=== PATIENT | male | born 1985 | race Caucasian/White ===

== ENCOUNTER 2016-12-14 16:37 | Inpatient (IN) | payer OTHER ==
--- NOTE | ~2016-12-14 | PA ---
Unit #: [id number] #: [id number] Patient: JAE FELIX [id number] [place] [address] [id number] MR#: [id number] NAME: JAE FELIX ROOM: P201 Age: 31 Sex: M Admission Date: 12/14/2016 : 1985 Date of Assessment: Attending Physician: Ashish Sorensen M.D. Admitting Physician: Ashish Sorensen M.D. Primary Care Physician: Generic Doctor Not In System PSYCHIATRIC ASSESSMENT JOB NOTE: DISTORTED AUDIO. [facility]ATION [facility] [address], room #201, bed #1. DATE OF SERVICE 12/15/2016. INFORMANTS The patient and chart. CHIEF COMPLAINT "I gotta get off drugs." HISTORY OF PRESENT ILLNESS This is a 31-year-old white male transferred from [facility] for issues with heroin and Xanax dependency. The patient apparently was there and treated for osteomyelitis infection for several days before being transferred here for chemical detox. Apparently, he was maintained on higher doses of opioids and benzos throughout the admission for reasons not exactly clear, but at this time the patient is reporting that he has been using large amounts daily for the last several months if not for the last 4+ years. He is vague about the amounts primarily heroin and Xanax, but also it include methamphetamines. He denies any acute mood issues, but apparently was on Zoloft hospital and reports tolerating it per the chart. He denies any SI or HI actually reports right now that he is feeling "better than I thought it would", he said it is a mildest GI discomfort, but otherwise normal. Sleep last night was poor though. The patient has never been through overt treatment before now. PAST PSYCHIATRIC HISTORY Nothing to contribute in terms of overt treatment psychiatric medications before his previous hospitalization. No history of SI, HI, or psychosis . FAMILY HISTORY Significant for "widespread drug users SOCIAL HISTORY The patient has good support through his father, has a high school diploma, currently unemployed. Unit #: [id number] #: [id number] Patient: JAE FELIX MEDICAL HISTORY Issues as noted above, for which he is currently on Levaquin. MEDICATION HISTORY Include Levaquin and Zoloft daily, started at the [facility] in [place]. ALLERGIES Include Zosyn. SUBSTANCE ABUSE HISTORY As noted above. No history of seizures. No history of intubation or severe medical complications before these recent events. MENTAL STATUS EXAMINATION General appearance; this is a moderately groomed white male, appears stated age. Multiple bruising and abrasions on arms from recent hospitalization and track denney. Fairly good eye contact. Speech somewhat dysphoric with a congruent affect. Thought process and content were grossly organized and linear. No overt evidence of psychosis. No SI or HI reported memory intact. Associations were normal. Cognitive function was at baseline. Alert and oriented x4. Insight and judgment are limited regarding substance use. ASSETS AND LIABILITIES Assets include support through his father . ADMITTING DIAGNOSES 1. withdrawal. 2. Sedative hypnotic dependence and withdrawal. 3. 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 4. Status post infection secondary to drug use. PSYCHIATRIC PLAN Psychiatric plan will be . Estimated length of stay approximately 4 to 5 days depending on the patient's response to treatment progress and care. Dictated by... Ashish Sorensen M.D. GLADIS/asa TD: 12/16/2016 01:21 JOB #: [id number] PSYCHIATRIC ASSESSMENT Page 1 of 1 X Ashish Sorensen MD X PSYCHIATRIC ASSESSMENT
--- NOTE | ~2016-12-14 | PN ---
Unit #: [id number] #: [id number] Patient: JAE FELIX [id number] [place] [address] [id number] MR#: [id number] NAME: JAE FELIX ROOM: P201 Age: 31 Sex: M Admission Date: 12/14/2016 : 1985 Attending Physician: Ashish Sorensen M.D. Admitting Physician: Ashish Sorensen M.D. Primary Care Physician: Generic Doctor Not In System [facility] PROGRESS NOTES DATE 12/17/2016 LOCATION [facility], Room #201, bed #1. SUBJECTIVE UPDATE This is a 31-year-old white male with issues of ongoing detox issues. The patient reports continuing to feel fairly well, some remanence of upset stomach, sleep disturbance, ache and pains, etc but overall is feeling much better today. Reported better night sleep with the medication changes to the Seroquel antidepressant continues to do well and he is tolerating the naltrexone with a sharp decrease in cravings. The patient did report his GI track is calming as he notices anger is (1)____ increasing and ask for larger portions. MENTAL STATUS EXAMINATION General appearance: This is a moderately groomed white male, fairly pleasant, cooperative, and responsive during the interview process with improved eye contact. Speech was clear and coherent with normal prosody. Mood was "better" with a congruent affect. Thought process and content are grossly organized and linear. No overt evidence of psychosis. No SI and no HI reported or listed. The patient's memory was grossly intact. Associations were normal. Cognitive function was at baseline. Associations were normal. Alert and oriented x4. Insight and judgment was improving. RECOMMENDATIONS We will continue the patient on current detox protocol symptoms appear to be resolving well and overall presentation is improving especially when tolerating the medications and sleep improvement. We will order for larger portions today with most likely disposition tomorrow if progress is maintained with outpatient care to be established per patient's needs. Dictated by... Manuel Paez/susu TD: 12/18/2016 04:23 JOB #: [id number] Unit #: [id number] #: [id number] Patient: JAE FELIX PROGRESS NOTES Page 1 of 1 X Ashish Sorensen MD PROGRESS NOTE
--- NOTE | ~2016-12-14 | HP ---
Unit #: [id number] #: [id number] Patient: LUIS FELIX [id number] [place] [address] [id number] MR#: [id number] NAME: LUIS FELIX ROOM: P201 Age: 31 Sex: M Admission Date: 12/14/2016 : 1985 Attending Physician: Ashish Sorensen M.D. Admitting Physician: Ashish Sorensen M.D. Primary Care Physician: Generic Doctor Not In System HISTORY AND PHYSICAL HISTORY OF PRESENT ILLNESS Luis is a 31 year old admitted to [address] [place] [address] because of his IV drug use. He was recently treated for a gram positive septicemia. He is admitted to [facility] on levaquin. PAST MEDICAL HISTORY 1. Long history of illicit substance abuse to include IV drugs. 2. Patient is being treated for gram positive septicemia. PAST SURGICAL HISTORY Nothing reported. ALLERGIES Zosyn SOCIAL HISTORY Smokes one-half pack per day. Drinks alcohol on occasion. Admits to a long history of illicit drug use to include methamphetamines, heroin and benzodiazepines. FAMILY HISTORY Medically noncontributory. REVIEW OF SYSTEMS CONSTITUTIONAL: No fever or chills. HEENT: Denies any sore throat, ear pain or runny nose. CARDIOVASCULAR: Denies chest pain, irregular heart rhythm or palpitations. CHEST: Denies shortness of breath or cough. No hemoptysis. GASTROINTESTINAL: Denies nausea, vomiting, diarrhea or chronic constipation. ENDOCRINE: Denies history of increased thirst or urination. No recent significant weight loss or gain. GENITOURINARY: Denies dysuria, frequency, or hematuria. SKIN: Denies any rashes. HEMATOLOGIC: Denies history of increased bleeding or bruising. MUSCULOSKELETAL: Denies any hot, swollen joints. No generalized muscle pain. NEUROLOGIC: Denies problems with vision or speech. No frequent, severe headaches. No numbness, tingling or weakness in any extremities. Denies loss of bladder or bowel control. CURRENT MEDICATIONS Unit #: [id number] #: [id number] Patient: LUIS FELIX 1. Detox protocol 2. Levaquin 750 mg p.o. q day PHYSICAL EXAMINATION GENERAL: Alert, well-nourished, in no apparent distress. VITAL SIGNS: Blood pressure 120/74, heart rate 70, respirations 16, temperature 98.6. WEIGHT: 160 pounds. HEIGHT: 5'10". SKIN: Warm and dry without rash or lesion. HEENT: Normocephalic. TMs not viewed. Oral and nasal passages clear. Conjunctivae clear. Pupils equal, round and reactive to light and accommodation. Extraocular movements intact. NECK: Supple without lymphadenopathy or thyromegaly. HEART: Regular rate and rhythm without murmur. LUNGS: Clear. ABDOMEN: Soft, nontender. : Not done. EXTREMITIES: No evidence of cyanosis, clubbing or edema. Moves all extremities without focal deficit. NEUROLOGICAL: Grossly within normal limits. Cranial Nerves: II: Visual melendrez are intact. III, IV AND : Extraocular movements are intact. Pupils are equal, round and reactive to light. V: Facial sensation is grossly normal. VII: Facial movements and expression are normal. VIII: Auditory acuity grossly intact. IX, X: Uvula is midline. Phonation is normal. XI: Patient shrugs shoulders and turns head normally. XII: Tongue protrudes in the midline. Sensory and Motor Function: Sensory and motor sensation is grossly normal. Motor: moves all extremities well. Coordination: Gait is normal. Deep Tendon Reflexes: Intact. IMPRESSION Psychiatric admission RECOMMENDATIONS PSYCHIATRIC: Per psychiatrist. MEDICAL: I see no contraindications to participating in facility's activities. MEDICAL PROGNOSIS Good. MEDICAL CONDITION Stable. Dictated by... Diandra Andrade P.A.-C. for Manuel Viera/susu TD: 12/15/2016 21:45 Unit #: [id number] #: [id number] Patient: LUIS FELIX JOB #: [id number] HISTORY AND PHYSICAL Page 1 of 1 X Diandra Andrade HISTORY AND PHYSICAL
--- NOTE | ~2016-12-14 | DS ---
Unit #: [id number] #: [id number] Patient: JAE FELIX [id number] [place] [address] [id number] MR#: [id number] NAME: JAE FELIX ROOM: P201 Age: 31 Sex: M Admission Date: 12/14/2016 : 1985 Discharge Date: 12/18/2016 Attending Physician: Ashish Sorensen M.D. Primary Care Physician: Generic Doctor Not In System DISCHARGE SUMMARY REASON FOR ADMISSION Opiate and sedative/hypnotic dependency with withdrawal. DIAGNOSTIC STUDIES Pertinent lab: Patient had urinalysis done during this admission which showed 1+ urobilinogen which was otherwise negative. No other tests were performed as they had been done at the [facility] in [place] prior to his admission. HOSPITAL COURSE The patient was admitted for safety and stabilization for concern of issues of opiate and sedative/hypnotic dependency. Patient had been transferred from a [facility] after he had been treated therefore for systemic bacterial infection secondary to IV heroin use. Patient apparently has used massive amounts of IV heroin and benzodiazepines on a daily basis and had been maintained on high doses during this medical admission for treatment purposes. There was high concern for withdrawal given the patient had been doing it for several years now and then subsequent maintenance of high doses when he was in the hospital during his medical treatment. Overall, the patient tolerated the brief time here he was in the hospital well. Symptoms were very mild and ranged from minor issues with upset stomach, tremors, anxiety, sleep issues and GI disturbance, all of which seemed to be resolved more or less by the time of discharge. Patient was not having any overt issues with depression, although he had been maintained on Zoloft from the [facility] and also on Levaquin for antibacterial treatment. The patient had also been started on trazodone here but did not tolerate it and switched over to Seroquel 50 mg at bedtime for both sleep and mood. At the time of discharge there was no overt issues of mood disturbance and it was felt much of his presentation could be acute on chronic, it is unclear or substance related, but regardless there was no evidence of acute imbalance. He was denying any SI or HI and had denied any of that the entire time he had been here and felt he had reached maximum benefit. For further treatment for his chemical dependency he was started on Naltrexone 50 mg daily by mouth. To make sure he tolerated this, the patient was planning on following up with Vivitrol clinic if at all possible after discharge. At time of discharge the patient was felt to have raised maximum benefit, was not voicing any new or ongoing significant issues that would maintain his treatment here and was felt ready for stepdown to go home to family and to follow up with community recourses in [place], as per his request. Unit #: [id number] #: [id number] Patient: JAE FELIX DISCHARGE DIAGNOSES 1. Opiate dependency withdrawal. 2. Sedative/hypnotic dependency withdrawal. 3. Status post infection. DISCHARGE FOLLOWUP CARE Community resources and psych resources in [place] with Vivitrol clinic encouraged. DISCHARGE MEDICATIONS 1. Zoloft 25 mg for depression and anxiety. 2. Naltrexone 50 mg daily by mouth for opiate dependency, prophylaxis treatment. 3. Seroquel 50 mg at bedtime for sleep and mood stabilization. 4. Levaquin 750 mg daily x3 more days for a total of 7 day treatment per oral per original order from medical facility in [place]. CONDITION AT DISCHARGE Improved. DISCHARGED PROGNOSIS Guarded given history of failed attempts in the past. DIET AND ACTIVITY Diet is regular. Activity is as tolerated with sobriety encouraged. Dictated by... Ashish Sorensen M.D. GLADIS/josep TD: 12/18/2016 12:51 JOB #: [id number] DISCHARGE SUMMARY Page 1 of 1 X Ashish Sorensen MD X DISCHARGE SUMMARY
--- NOTE | ~2016-12-14 | PN ---
Unit #: [id number] #: [id number] Patient: JAE FELIX [id number] [place] [address] [id number] MR#: [id number] NAME: JAE FELIX ROOM: P201 Age: 31 Sex: M Admission Date: 12/14/2016 : 1985 Attending Physician: Ashish Sorensen M.D. Admitting Physician: Ashish Sorensen M.D. Primary Care Physician: Generic Doctor Not In System [facility] PROGRESS NOTES DATE 12/16/2016 LOCATION [facility], [address] [place] [address], Room #201, bed #1. SUBJECTIVE UPDATE This is a 31-year-old white male who is here with ongoing issues of significant opiate and benzodiazepine dependency. The patient reports no overt withdrawal symptoms today beyond some sleep disturbance and some mild GI upset, but he said overall he still feels fairly good. We had a discussion about naltrexone as he did receive Vivitrol eventually and decided to make a change with his sleep medication, all of which he was in agreement for. No active evidence of SI or HI. Patient is tolerating the Zoloft being continued, even though he does report anxiety is still an issue. MENTAL STATUS EXAMINATION General appearance: This is a moderately groomed white male, fairly pleasant, cooperative, and responsive during the interview process. Speech was clear and coherent, normal prosody. Mood was anxious with a congruent affect. Thought process and content are grossly organized and linear. No overt evidence of psychosis. No SI and no HI reported or listed. The patient's memory was grossly intact. Associations were normal. Cognitive function was at baseline. Alert and oriented x4. Insight and judgment is limited but improving. RECOMMENDATIONS We will continue the patient's admission and monitor for any additional change in detox process. Patient is continuing to do well this far. Was started on naltrexone 50 mg daily by mouth to help with opiate cravings, as well as change from trazodone to Seroquel at bedtime for a more appropriate sleep aid, as well as something that may help with his mood. Patient is continuing to go groups and activities and the social detox process is ongoing. Dictated by... Ashish Sorensen M.D. SB/alma Unit #: [id number] #: [id number] Patient: JAE FELIX TD: 12/16/2016 18:15 JOB #: [id number] UNIQUE PROGRESS NOTES Page 1 of 1 X Ashish Sorensen MD PROGRESS NOTE
[2016-12-15 12:38] LABS: URINE APPEARANCE CLOUDY; URINE BILIRUBIN NEG (NEG); URINE BLOOD NEG (NEG); URINE COLOR YELLOW; URINE GLUCOSE NEG (NEG); URINE KETONE NEG (NEG); URINE LEUKOCYTE ESTERASE NEG (NEG); URINE NITRATE NEG (NEG); URINE PROTEIN NEG (NEG)
== END 2016-12-18 16:15 | disposition home or self-care (01) | DRG 897 ==
LOC: P2S 16:37
PROVIDERS: Psychiatry & Neurology Psychiatry
PROC: HZ2ZZZZ Detoxification Services for Substance Abuse Treatment (ICD-10-PCS; principal; 2016-12-14)
DX: F11.23 Opioid dependence with withdrawal (principal); F19.24 Other psychoactive substance dependence with psychoactive substance-induced mood disorder; F13.239 Sedative, hypnotic or anxiolytic dependence with withdrawal, unspecified; F17.210 Nicotine dependence, cigarettes, uncomplicated
CPT/HCPCS: 81003; 86592